=== PATIENT | female | born 1995 | race Caucasian/White ===

== ENCOUNTER 2018-03-17 20:45 | Outpatient (CLI) | payer OTHER ==
[2018-03-17 21:34] LABS: APPEARANCE,URINE CLEAR; BILIRUBIN,URINE NEGATIVE (NEGATIVE); COLOR,URINE YELLOW; GLUCOSE, URINE NEGATIVE (NEGATIVE); KETONES,URINE NEGATIVE (NEGATIVE); LEUKOCYTE ESTERASE,URINE NEGATIVE (NEGATIVE); NITRITE,URINE NEGATIVE (NEGATIVE); PROTEIN,URINE NEGATIVE (NEGATIVE); URINE SPECIFIC GRAVITY 1.019; UROBILINOGEN,URINE NEGATIVE mg/dL (<2.0)
[2018-03-17 21:35] LABS: AMNISURE (ROM) NEGATIVE (NEGATIVE)
[2018-03-17 21:52] LABS: URINE AMPHETAMINES SCREEN NEGATIVE; URINE BARBITURATES SCREEN NEGATIVE; URINE BENZODIAZEPINES SCREEN NEGATIVE; URINE COCAINE SCREEN NEGATIVE; URINE MARIJUANA (THC) SCREEN NEGATIVE; URINE METHADONE SCREEN NEGATIVE; URINE PHENCYCLIDINE SCREEN NEGATIVE
== END 2018-03-17 22:00 | disposition home or self-care (01) ==
LOC: LC 20:45
PROVIDERS: ATTEND Obstetrics & Gynecology
PROC: 4A1HXCZ Monitoring of Products of Conception, Cardiac Rate, External Approach (ICD-10-PCS; principal; 2018-03-17)
DX: O47.1 False labor at or after 37 completed weeks of gestation (principal); Z3A.39 39 weeks gestation of pregnancy
CPT/HCPCS: 59025; 80307; 81005; 84112

== ENCOUNTER 2018-03-21 14:17 | Outpatient (CLI) | payer OTHER ==
--- NOTE | 2018-03-21 14:24 | Non Stress Test Report ---
Non Stress Test Datetime Report Generated by CPN: 03/21/2018 14:24 DEMOGRAPHIC EGA NST: 39.0 INDICATION Indication for Study: Ordered by Provider URINE RESULTS Urine Protein, NST: Negative Urine Ketones - NST: Negative Urine Glucose - NST: Negative Urine Blood - NST: Negative MONITORING Monitor Explained: Monitor Explained; Test Explained; Patient Verbalized Understanding Time on Monitor: 03/17/2018 21:02 Time off Monitor: 03/17/2018 21:51 NST Duration: 49 NST INTERVENTIONS NST Interventions: PO Hydration Physician Notified NST: Dr. Antolin BABY A: [id number] BABY A Movement : Present Contraction Frequency : None FHR Baseline : 145 Accelerations : 15X15 Decelerations : None Variability : Moderate 6-25bpm NST Review: Meets Criteria for Reactive NST NST Review and Verified By : Virgen Tellez RN NST Results: Reactive NST REPORT Report Trigger: Send Report
--- NOTE | 2018-03-21 15:15 | Non Stress Test Report ---
Non Stress Test Datetime Report Generated by CPN: 03/21/2018 15:15 DEMOGRAPHIC EGA NST: 39.4 INDICATION Indication for Study: Ordered by Provider VITAL SIGNS Temperature - NST: 99.0 Pulse - NST: 101 RESP - NST: 18 NBPSYS NST: 121 NBPDIA NST: 72 MONITORING Monitor Explained: Monitor Explained; Test Explained; Patient Verbalized Understanding Time on Monitor: 03/21/2018 14:30 NST INTERVENTIONS NST Interventions: PO Hydration Physician Notified NST: [id number] BABY A Movement : Present Contraction Frequency : x1 FHR Baseline : 140 Accelerations : 15X15 Decelerations : None Variability : Moderate 6-25bpm NST Review: Meets Criteria for Reactive NST NST Review and Verified By : Danyell NST Results: Reactive NST REPORT Report Trigger: Send Report
== END 2018-03-21 15:10 | disposition home or self-care (01) ==
LOC: LC 14:17
PROVIDERS: ATTEND Student in an Organized Health Care Education/Training Program
PROC: 4A1HXCZ Monitoring of Products of Conception, Cardiac Rate, External Approach (ICD-10-PCS; principal; 2018-03-21)
DX: Z34.93 Encounter for supervision of normal pregnancy, unspecified, third trimester (principal)
CPT/HCPCS: 59025

== ENCOUNTER 2018-03-22 11:42 | Inpatient (IN) | payer OTHER ==
[2018-03-22 12:44] LABS: URINE AMPHETAMINES SCREEN NEGATIVE; URINE BARBITURATES SCREEN NEGATIVE; URINE BENZODIAZEPINES SCREEN NEGATIVE; URINE COCAINE SCREEN NEGATIVE; URINE MARIJUANA (THC) SCREEN NEGATIVE; URINE METHADONE SCREEN NEGATIVE; URINE PHENCYCLIDINE SCREEN NEGATIVE
[2018-03-22] MEDS ORDERED: RINGERS SOLUTION,LACTATED 300 ML IV ONE (14:33)
[2018-03-22] MEDS ORDERED: PENICILLIN G-K 5 MILLION UNIT VIAL IV ONE (14:34)
[2018-03-22] MEDS ORDERED: MISOPROSTOL 0.2 MG TABLET ONE (14:34)
[2018-03-22] MEDS ORDERED: OXYTOCIN/NORMAL SALINE 20 UNIT/1,000 ML RTUINJ ONE (14:34)
[2018-03-22] MEDS ORDERED: LIDOCAINE 1% INJ-PF (10 MG/ML) 30 ML SDV ONE (14:34)
[2018-03-22] MEDS ORDERED: PENICILLIN G-K 5 MILLION UNIT VIAL ONE (14:34)
[2018-03-22] MEDS ORDERED: ONDANSETRON 4 MG TAB.RAPDIS ONE (14:45)
[2018-03-22 14:58] LABS: ABSOLUTE BASOPHILS # (AUTO) 0.1 10^3/uL (0.0-0.2); ABSOLUTE LYMPHOCYTES (AUTO) 2.3 10^3/uL (0.5-4.7); ABSOLUTE MONOCYTES (AUTO) 0.9 10^3/uL (0.1-1.4); ABSOLUTE NEUT (AUTO) 13.4 10^3/uL (1.7-8.2); BASOPHILS % (AUTO) 0.7 % (0-2); EOSINOPHILS % (AUTO) 0.1 % (0-6); HEMATOCRIT 36.4 % (36.0-47.0); HEMOGLOBIN 12.4 g/dL (12.0-15.5); LYMPHOCYTES % (AUTO) 13.9 % (13-45); MEAN CORPUSCULAR HEMOGLOBIN 27.3 pg (27.0-33.4); MEAN CORPUSCULAR VOLUME 80 fl (80-97); MONOCYTES % (AUTO) 5.5 % (3-13); PLATELET COUNT 313 10^3/uL (150-450); RED BLOOD COUNT 4.53 10^6/uL (3.72-5.28); RED CELL DISTRIBUTION WIDTH 15.3 % (11.5-14.0); SEGMENTED NEUTROPHILS % (AUTO) 79.8 % (42-78); TOTAL CELLS COUNTED % (AUTO) 100 %; WHITE BLOOD COUNT 16.8 10^3/uL (4.0-10.5)
[2018-03-22] MEDS ORDERED: EPHEDRINE SULFATE INJ 50 MG/1 ML AMPULE ONE (14:58)
[2018-03-22] MEDS ORDERED: BUPIVACAINE HCL 0.25 % INJ/PF (2.5 MG/1 ML) 30 ML VIAL ONE (14:59)
[2018-03-22] MEDS ORDERED: FENTANYL/BUPIVACAINE/NS/PF 300 MCG/150 ML RTUINJ EPI ONE (14:59)
--- NOTE | 2018-03-22 15:33 | Admission Physical ---
Datetime Report Generated by CPN: 03/22/2018 15:33 CURRENT ADMISSION Admit Impression : Term, Intrauterine ALLERGIES Medication Allergies: No Medication Allergies: No Known Allergies (03/21/2018) Latex: No Latex Allergies Food Allergies: N/A Environmental Allergies: N/A OBSTETRICAL HISTORY EDC: 03/24/2018 00:00 : 1 Para: 0 Term: 0 : 0 SAB: 0 IAB: 0 Ectopic: 0 Livin Cesareans: 0 VBACs: 0 Multiple Births: 0 Gestational Diabetes: Yes Rh Sensitization: No Incompetent Cervix: No FRANCHESKA: No Infertility: No ART Treatment: No Uterine Anomaly: No IUGR: No Hx Previous C/S: No Macrosomia: No Hx Loss/Stillborn: No PIH: No Hx : No Placenta Previa/Abruption: No Depression/PP Depression: No PTL/PROM: No Post Hemorrhage: No Current Procedures: Ultrasound; NST Obstetrical History Comments: G1: current GDM diet controlled SEE RECORDS Alcohol: No Marijuana : No Cocaine: No Other Illicit Drugs: No Cigarettes: Never Smoker. [id number] MEDICAL HISTORY Diabetes: Yes Diabetes Type: Gestational Diabetes Blood Transfusion: No Pulmonary Disease (Asthma, TB): No Breast Disease: No Hypertension: No Animal Care Worker Surgery: No Heart Disease: No Hosp/Surgery: Yes Autoimmune Disorder: No Anesthetic Complications: No Kidney Disease: No Abnormal Pap Smear: No Neuro/Epilepsy: No Psychiatric Disorders: No Other Medical Diseases: No Hepatitis/Liver Disease: No Significant Family History: No Varicosities/Phlebitis: No Trauma/Violence : No Thyroid Dysfunction: No Medical History Comments: Lip surgery (2002) INFECTIOUS HISTORY Gonorrhea: No Genital Herpes: No Chlamydia: No Tuberculosis: No Syphilis: No Hepatitis: No HIV/AIDS Exposure: No Rash or Viral Illness: No HPV: No PHYSICAL EXAM General: Normal HEENT: Normal Neurologic: Normal Thyroid: Normal Heart: Normal Lungs: Normal Breast: Deferred Back: Normal Abdomen: Normal Genitourinary Exam: Normal Extremities: Normal DTRs: Normal Pelvic Type: Adequate Vital Signs: Reviewed MEMBRANES Membranes: Intact FETUS A Monitoring: External US FHR- Baseline: 120 Variability: Moderate 6-25bpm Accelerations: 15X15 Decelerations: None FHR Category: Category I Presentation: Vertex Admit Comment: 22 yo EDC 03/24/18 EGA 39.5 obesity term GDM positive GBS sve /1 admit gbs prophylaxis pain management pt considering epidural anticipate PLANS FOR LABOR AND DELIVERY Labor and Delivery: Plan Pain Management: Epidural Feeding Preference: Breast Benefit of Breast Feed Discussed: Yes Circumcision: N/A INFORMED CONSENT Assignment: Aroldo Newell MD Signature: with User ID: [email or web address] : with User ID: [email or web address]
[2018-03-22] MEDS ORDERED: OXYTOCIN/NORMAL SALINE 1,000 ML IV PRN (18:20)
[2018-03-22] MEDS ORDERED: DIPH/PERTUSS(ACELL)/TETANUS VAC/PF 0.5 ML SYR (>=10YO) IM PRN (18:20)
[2018-03-22] MEDS ORDERED: DIBUCAINE 1% OINTMENT 28 GM TP PRN (18:20)
[2018-03-22] MEDS ORDERED: ZOLPIDEM TARTRATE 5 MG TABLET PO PRN (18:20)
[2018-03-22] MEDS ORDERED: BENZOCAINE/MENTHOL AEROSOL SPRAY 56 ML TOP PRN (18:20)
[2018-03-22] MEDS ORDERED: MEASLES,MUMPS&RUBELLA VACC/PF 0.5 ML VIAL SUBCUT PRN (18:20)
[2018-03-22] MEDS: IBUPROFEN 800 MG TABLET PO SCH (22:37)
[2018-03-23] MEDS: IBUPROFEN 800 MG TABLET PO SCH ×3 (05:29→22:17)
[2018-03-23 07:25] LABS: MEAN CORPUSCULAR HEMOGLOBIN 27.3 pg (27.0-33.4); MEAN CORPUSCULAR HGB CONC 33.5 g/dL (32.0-36.0); MEAN CORPUSCULAR VOLUME 81 fl (80-97); PLATELET COUNT 256 10^3/uL (150-450); RED BLOOD COUNT 3.56 10^6/uL (3.72-5.28); RED CELL DISTRIBUTION WIDTH 15.4 % (11.5-14.0)
[2018-03-23 07:29] LABS: HEMOGLOBIN 9.7 g/dL (12.0-15.5)
[2018-03-23] MEDS: SENNOSIDES/DOCUSATE 8.6-50 MG 1 EACH TABLET PO SCH (10:26)
[2018-03-23] MEDS: PRENATAL VITAMIN W DHA CAPSULE PO SCH (10:26)
[2018-03-23] MEDS: DOCUSATE SODIUM 100 MG CAPSULE PO SCH ×2 (10:27→17:38)
[2018-03-23] MEDS: FERROUS SULFATE 325 MG TABLET PO SCH ×2 (10:27→17:37)
--- NOTE | 2018-03-23 10:31 | PDOC PROGRESS REPORT ---
Subjective-OB Progress Note for:: 03/23/18 Physical Exam (OB) Vital Signs: Temp Pulse Resp BP Pulse Ox 97.8 F 88 15 117/72 99 03/23/18 08:00 03/23/18 08:00 03/23/18 08:00 03/23/18 08:00 03/23/18 08:00 Intake & Output 03/22/18 03/23/18 03/24/18 06:59 06:59 06:59 Weight 101.8 kg - PIH/Pre-Eclampsia DTR's: 1 + Clonus: Negative Headache: Absent Epigastric Pain: No Visual Changes: No - Lochia Lochia Amount: Scant < 10 ml Lochia Color: Rubra/Red - Abdomen Description: Soft, Round Hernia Present: No Bowel Sounds: Normoactive Flatus Presence: Present Stool: No Fundal Description: Firm, Midline Fundal Height: u/u - u/2 Objective-Diagnostic Laboratory: 03/23/18 07:06 03/22/18 03/22/18 03/23/18 14:40 14:40 07:06 WBC 16.8 H 19.0 H RBC 4.53 3.56 L Hgb 12.4 9.7 L D Hct 36.4 29.0 L MCV 80 81 MCH 27.3 27.3 MCHC 34.0 33.5 RDW 15.3 H 15.4 H Plt Count 313 256 Seg Neutrophils % 79.8 H Lymphocytes % 13.9 Monocytes % 5.5 Eosinophils % 0.1 Basophils % 0.7 Absolute Neutrophils 13.4 H Absolute Lymphocytes 2.3 Absolute Monocytes 0.9 Absolute Eosinophils 0.0 Absolute Basophils 0.1 Blood Type O POSITIVE Antibody Screen NEGATIVE
[2018-03-23] MEDS ORDERED: IBUPROFEN 800 MG TABLET PO ONE (17:45)
[2018-03-24] MEDS: IBUPROFEN 800 MG TABLET PO SCH ×2 (06:07→14:37)
[2018-03-24 08:12] LABS: HEMATOCRIT 29.4 % (36.0-47.0); HEMOGLOBIN 9.8 g/dL (12.0-15.5); MEAN CORPUSCULAR HEMOGLOBIN 27.2 pg (27.0-33.4); MEAN CORPUSCULAR HGB CONC 33.2 g/dL (32.0-36.0); MEAN CORPUSCULAR VOLUME 82 fl (80-97); PLATELET COUNT 260 10^3/uL (150-450); RED BLOOD COUNT 3.59 10^6/uL (3.72-5.28); RED CELL DISTRIBUTION WIDTH 15.7 % (11.5-14.0); WHITE BLOOD COUNT 12.6 10^3/uL (4.0-10.5)
[2018-03-24 09:52] VITALS: BP 117/68
[2018-03-24] MEDS: FERROUS SULFATE 325 MG TABLET PO SCH (10:35)
[2018-03-24] MEDS: SENNOSIDES/DOCUSATE 8.6-50 MG 1 EACH TABLET PO SCH (10:35)
[2018-03-24] MEDS: PRENATAL VITAMIN W DHA CAPSULE PO SCH (10:35)
[2018-03-24] MEDS: DOCUSATE SODIUM 100 MG CAPSULE PO SCH (10:35)
--- NOTE | 2018-03-24 11:55 | PDOC PROGRESS REPORT ---
Subjective-OB Progress Note for:: 03/24/18 Subjective: Ready to go home-knows baby will be staying. Physical Exam (OB) Vital Signs: Temp Pulse Resp BP Pulse Ox 98.0 F 97 18 117/68 99 03/24/18 08:11 03/24/18 08:11 03/24/18 08:11 03/24/18 07:40 03/24/18 08:11 Intake & Output 03/23/18 03/24/18 03/25/18 06:59 06:59 06:59 Weight 101.8 kg - PIH/Pre-Eclampsia DTR's: 1 + Clonus: Negative Headache: Absent Epigastric Pain: No Visual Changes: No - Lochia Lochia Amount: Small 10-25 ml Lochia Color: Rubra/Red - Abdomen Description: Tender, Soft Hernia Present: No Bowel Sounds: Normoactive Flatus Presence: Present Stool: Yes Fundal Description: Firm, Midline Fundal Height: u/u - u/2 Objective-Diagnostic Laboratory: 03/24/18 07:31 03/24/18 07:31 WBC 12.6 H RBC 3.59 L Hgb 9.8 L Hct 29.4 L MCV 82 MCH 27.2 MCHC 33.2 RDW 15.7 H Plt Count 260
--- NOTE | 2018-03-24 12:02 | PDOC DISCHARGE SUMMARY ---
Final Diagnosis Discharge Date: 03/24/18 - Final Diagnosis (1) Anemia Is this a current diagnosis for this admission?: Yes (2) GDM (gestational diabetes mellitus) Is this a current diagnosis for this admission?: Yes (3) Positive GBS test Is this a current diagnosis for this admission?: Yes (4) Delivery normal Is this a current diagnosis for this admission?: Yes (5) Is this a current diagnosis for this admission?: Yes Discharge Data - Discharge Medication Prescriptions: Ferrous Sulfate [Feosol 325 mg Tablet] 325 mg PO BID #60 tablet Home Medications: Prenat 115/Iron Fum/Folic/Dss [ 19 Tablet] 1 each PO DAILY 03/17/18 Ferrous Sulfate [Feosol 325 mg Tablet] 325 mg PO BID #60 tablet 03/24/18 Gestational Age: 39.5 wks Reason(s) for Admission: Onset of Labor, Gestional Diabetes Procedures: Ultrasound Intrapartum Procedure(s): Spontaneous Vaginal Delivery Complication(s): Laceration-Vaginal, Laceration-Labial Laceration-Degree: 2nd - [place] Data Baby 1 Female at 1 minute: 8 at 5 minutes: 9 Weight: 3.118 kg Home with Mother: No Complications: Yes - Obs for GBS - Diagnosis Test Laboratory: Temp Pulse Resp BP Pulse Ox 98.0 F 97 18 117/68 99 03/24/18 08:11 03/24/18 08:11 03/24/18 08:11 03/24/18 07:40 03/24/18 08:11 03/22/18 03/22/18 03/23/18 11:47 14:40 07:06 RBC 4.53 3.56 L Hgb 12.4 9.7 L D Hct 36.4 29.0 L Urine Opiates Screen NEGATIVE 03/24/18 07:31 RBC 3.59 L Hgb 9.8 L Hct 29.4 L Urine Opiates Screen - Discharge information/Instructions Discharge Activity: Activity As Tolerated, Balance Activity w/Rest, Pelvic Rest , Slowly Increase Activity, No tub bath Discharge Diet: Regular Disposition: HOME, SELF-CARE Follow up with: [facility] in: 4, Weeks
--- NOTE | 2018-03-29 21:55 | Delivery Summary ---
Del Sum A-C Datetime Report Generated by CPN: 03/29/2018 21:55 DELIVERY PERSONNEL DELIVERY PERSONNEL: [id number] Delivery Doctor:: Karen Billingsley CNM Labor and Delivery Nurse:: Karen Lindo RN Nursery Nurse:: Willem Salas RN Additional Personnel: : Faustina Parada, Student CASTING SUPERVISOR [place] MATERNAL INFORMATION Delivery Anesthesia: Epidural Medications After Delivery: Pitocin Drip 20 Units/1000ml NSS Maternal Complications: None Provider Comments: delivery of viable female apgars 8/9 bulb suctioned on abdomen mom pushed well NURIS nuchal x 1 easily reduced to abdomen tactile stimulation elicits spont cry cord clamped cut by FOb cord blood obtained placenta delivered intact 3VC 2nd degree vaginal laceration repaired under epidural with 2.0 chromic gut 1% lidocaine also administered bilateral right and labial lacerations x 2 stitches each ebl 200 cc hemostasis achieved ff@u-2 moderate lochia with small clots LABOR SUMMARY EDC: 03/24/2018 00:00 No. Babies in Womb: 1 Attempted: No Labor Anesthesia: Epidural LABOR INFORMATION Reason for Induction: Not Applicable Onset of Labor: 03/22/2018 12:01 Complete Dilatation: 03/22/2018 16:14 Other Ripening Agents: n/a Oxytocin: N/A Group B Beta Strep: positive Antibiotics # of Doses: 1 Antibiotics Time of Last Dose: 1443 Name of Antibiotic Given: Penicillin Steroids Given: None Reason Steroids Not Administered: Not Applicable Other Reason Not Administered: n/a MEMBRANES Membranes Rupture Method: Artificial Rupture of Membranes: 03/22/2018 16:14 Length of Rupture (hr): 1.47 Amniotic Fluid Color: Clear Amniotic Fluid Amount: Small Amniotic Fluid Odor: Normal STAGES OF LABOR Stage 1 hr: 4 Stage 1 min: 13 Stage 2 hr: 1 Stage 2 min: 28 Stage 3 hr: 0 Stage 3 min: 2 Total Time in Labor hr: 5 Total Time in Labor min: 43 VAGINAL DELIVERY Episiotomy: Median Laceration #1: Vaginal Laceration Extension #1: Second Degree Other Laceration: bilateral labial Laceration Repair: Yes CSECTION DELIVERY Primary Indication: N/A Secondary Indication: N/A CSection Incidence: N/A Labor: N/A Elective: N/A CSection Incision: N/A BABY A INFORMATION Delivery Date/Time: 03/22/2018 17:42 Method of Delivery: Vaginal Born in Route : No : N/A Forceps: N/A Vacuum Extraction: N/A Shoulder Dystocia : No PRESENTATION/POSITION BABY A Presentation: Cephalic Cephalic Presentation: Vertex Vertex Position: Right Occipital Anterior Breech Presentation: N/A PLACENTA INFORMATION BABY A Placenta Delivery Time : 03/22/2018 17:44 Placenta Method of Delivery: Spontaneous Placenta Status: Delivered Placenta Status: Delivered SCORES BABY A Heart Rate 1 min: >100 bpm Resp Effort 1 min: Good Cry Reflex Irritability 1 min: Cough or Sneeze or Pulls Away Muscle Tone 1 min: Active Motion Color 1 min: Blue/Pale Resuscitation Effort 1 min: Tactile Stimulation SCORE 1 MIN: 8 Heart Rate 5 min: >100 bpm Resp Effort 5 min: Good Cry Reflex Irritability 5 min: Cough or Sneeze or Pulls Away Muscle Tone 5 min: Active Motion Color 5 min: Body [place], Extremities Blue Resuscitation Effort 5 min: Tactile Stimulation SCORE 5 MIN: 9 INFORMATION BABY A Gestational Age at Delivery: 39.5 Gestational Status: Full Term- 39- 40.6 Weeks Infant Outcome : Liveborn Infant Condition : Stable Sex: Female IDENTIFICATION BABY A Infant Verification Date/Time: 03/22/2018 17:58 ID Band Number: [id number] Mother's Name Verified: Yes RN Verifying : CMargie Beck, RN/ D. Spouse WEIGHT/LENGTH BABY A Birthweight (gm): 3130 Infant Weight (lb): 6 Weight (oz): 14 Length (in): 20.50 Infant Length (cm): 52.07 CORD INFORMATION BABY A No. Cord Vessels: 3 Nuchal Cord : Around Neck x1, Loose Cord Blood Taken: Yes-For Eval (Mom's Blood Type - or O+) Suction: Mouth; Nose ASSESSMENT BABY A Skin to Skin: Yes Skin to Skin Time (min): 90 BABY B INFORMATION : N/A SIGNATURES Assignment: Aroldo Newlel MD Signature: with User ID: [email or web address] : with User ID: [email or web address]
== END 2018-03-24 15:16 | disposition home or self-care (01) | DRG 775 ==
LOC: LC 11:42 → LR 14:24 → 2S 20:15
PROVIDERS: ADMIT Obstetrics & Gynecology Gynecology; ATTEND Obstetrics & Gynecology Gynecology
PROC: 10E0XZZ Delivery of Products of Conception, External Approach (ICD-10-PCS; principal; 2018-03-22)
PROC: 0KQM0ZZ Repair Perineum Muscle, Open Approach (ICD-10-PCS; 2018-03-22)
DX: O24.420 Gestational diabetes mellitus in childbirth, diet controlled (principal); Z68.41 Body mass index [BMI] 40.0-44.9, adult; O99.824 Streptococcus B carrier state complicating childbirth; O99.214 Obesity complicating childbirth; E66.8 Other obesity; Z3A.39 39 weeks gestation of pregnancy; O69.81X0 Labor and delivery complicated by cord around neck, without compression, not applicable or unspecified; O70.1 Second degree perineal laceration during delivery; Z37.0 Single live birth
CPT/HCPCS: 36415; 80307; 85025; 85027; 86592; 86850; 86900; 86901; 94760; J2540; J2590; J3010; J3490; S0119

== ENCOUNTER 2018-03-25 19:15 | Emergency (ER) | payer OTHER ==
--- NOTE | 2018-03-25 21:47 | ER Document Report ---
ED General - General Chief Complaint: Leg Pain Stated Complaint: LEG PAIN Time Seen by Provider: 03/25/18 21:14 Notes: Patient is a 22-year-old female 3 days who presents with bilateral lower extremity edema. Patient describes it as a mild, throbbing, constant discomfort to the bilateral lower extremities that has been present since she was discharged from the hospital. She notes that it may have worsened somewhat in the past 24 hours which concerned her and prompted her to come to the emergency department. She did receive IV fluids during her recent hospitalization. Nothing improves or worsens her symptoms. She has not contacted her DIGITAL MARKETING EXECUTIVE regarding today's concerns. He denies any history of DVT or pulmonary embolus. She denies any unilateral severity to the swelling or pain. TRAVEL OUTSIDE OF THE [place] IN LAST 30 DAYS: No - Related Data Allergies/Adverse Reactions: No Known Allergies Allergy (Verified 03/21/18 15:08) Past Medical History - General Information source: Patient - Social History Smoking Status: Never Smoker Chew tobacco use (# tins/day): No Frequency of alcohol use: None Drug Abuse: None Lives with: Spouse/Significant other Family History: Reviewed & Not Pertinent Patient has suicidal ideation: No Patient has homicidal ideation: No Renal/ Medical History: Denies: Hx Peritoneal Dialysis Review of Systems - Review of Systems Notes: Constitutional: Negative for fever. HENT: Negative for sore throat. Eyes: Negative for visual changes. Cardiovascular: Negative for chest pain. Respiratory: Negative for shortness of breath. Gastrointestinal: Negative for abdominal pain, vomiting or diarrhea. Genitourinary: Negative for dysuria. Musculoskeletal: Positive for bilateral lower extremity edema and pain. Skin: Negative for rash. Neurological: Negative for headaches, weakness or numbness. 10 point ROS negative except as marked above and in HPI. Physical Exam - Vital signs Vitals: Temp Pulse Resp BP Pulse Ox 98.5 F 90 18 130/78 H 98 03/25/18 19:22 03/25/18 19:22 03/25/18 19:22 03/25/18 19:22 03/25/18 19:22 Interpretation: Normal Notes: PHYSICAL EXAMINATION: GENERAL: Well-appearing, well-nourished and in no acute distress. HEAD: Atraumatic, normocephalic. EYES: Pupils equal round and reactive to light, extraocular movements intact, sclera anicteric, conjunctiva are normal. ENT: nares patent, oropharynx clear without exudates. Moist mucous membranes. NECK: Normal range of motion, supple without lymphadenopathy LUNGS: Breath sounds clear to auscultation bilaterally and equal. No wheezes rales or rhonchi. HEART: Regular rate and rhythm without murmurs ABDOMEN: Soft, nontender, normoactive bowel sounds. No guarding, no rebound. No masses appreciated. EXTREMITIES: Normal range of motion, 1+ pitting edema in the bilateral lower extremities that is equal and symmetric NEUROLOGICAL: No focal neurological deficits. Moves all extremities spontaneously and on command. PSYCH: Normal mood, normal affect. SKIN: Warm, Dry, normal turgor, no rashes or lesions noted. Course - Re-evaluation Re-evalutation: 03/25/18 21:45 Patient presents with bilateral lower extremity edema, 1+ bilaterally equal and symmetric consistent with edema in the setting of having received IV fluids. There is no unilaterality to the edema. I do not currently suspect an acute DVT or any alternative life-threatening pathology. No evidence of cellulitis. At this time will discharge with return precautions and follow-up recommendations. Verbal discharge instructions given a the bedside and opportunity for questions given. Medication warnings reviewed. Patient is in agreement with this plan and has verbalized understanding of return precautions and the need for primary care follow-up in the next 24-72 hours. - Vital Signs Vital signs: Temp Pulse Resp BP Pulse Ox 98.5 F 92 16 123/100 H 99 03/25/18 19:22 03/25/18 21:50 03/25/18 21:50 03/25/18 21:50 03/25/18 21:50 Discharge - Discharge Clinical Impression: Bilateral lower extremity edema Condition: Good Disposition: HOME, SELF-CARE Additional Instructions: Please wear the compression stockings as much as you are able to reduce the swelling which is due to the IV fluids and your recent . Please return if you develop severe pain in your legs, or swelling fails to resolve in the next 1-2 weeks, or he if you have any other symptoms that are worrisome to you. Please follow-up with your DIGITAL MARKETING EXECUTIVE within the next one leg becomes more swollen the other, several days. Referrals: JACQUELYN ALMODOVAR MD [[facility]] - Follow up as needed
[2018-03-25 22:30] VITALS: BP 123/100
== END 2018-03-25 21:55 | disposition home or self-care (01) ==
LOC: ER 19:15
DX: O90.89 Other complications of the puerperium, not elsewhere classified (principal); R60.0 Localized edema; M79.601 Pain in right arm; M79.602 Pain in left arm
CPT/HCPCS: 99284

== ENCOUNTER 2019-09-24 21:10 | Outpatient (CLI) | payer OTHER ==
[2019-09-24 22:08] LABS: APPEARANCE,URINE SLIGHTLY-CLOUDY; BILIRUBIN,URINE NEGATIVE (NEGATIVE); COLOR,URINE YELLOW; GLUCOSE, URINE NEGATIVE (NEGATIVE); KETONES,URINE NEGATIVE (NEGATIVE); LEUKOCYTE ESTERASE,URINE NEGATIVE (NEGATIVE); NITRITE,URINE NEGATIVE (NEGATIVE); PROTEIN,URINE NEGATIVE (NEGATIVE); URINE SPECIFIC GRAVITY 1.012; UROBILINOGEN,URINE NEGATIVE mg/dL (<2.0)
[2019-09-24 22:30] LABS: URINE AMPHETAMINES SCREEN NEGATIVE; URINE BARBITURATES SCREEN NEGATIVE; URINE BENZODIAZEPINES SCREEN NEGATIVE; URINE COCAINE SCREEN NEGATIVE; URINE MARIJUANA (THC) SCREEN NEGATIVE; URINE METHADONE SCREEN NEGATIVE; URINE PHENCYCLIDINE SCREEN NEGATIVE
--- NOTE | 2019-09-25 00:37 | Non Stress Test Report ---
Non Stress Test Datetime Report Generated by CPN: 09/25/2019 00:37 DEMOGRAPHIC EGA NST: 39.2 INDICATION Indication for Study (NST) Other: Contractions MONITORING Monitor Explained: Monitor Explained; Test Explained; Patient Verbalized Understanding Time on Monitor: 09/24/2019 21:22 Time off Monitor: 09/24/2019 23:27 NST Duration: 125 NST INTERVENTIONS NST Interventions: PO Hydration; Reposition Patient Physician Notified NST: Dr. Gama BABY A: [id number] BABY A Movement : Present Contraction Frequency : 2-30 FHR Baseline : 130 Accelerations : 15X15 Decelerations : None Variability : Moderate 6-25bpm NST Review: Meets Criteria for Reactive NST NST Review and Verified By : Jaime Botello RN NST Results: Reactive NST REPORT Report Trigger: Send Report
== END 2019-09-24 23:39 | disposition home or self-care (01) ==
LOC: LC 21:10
PROVIDERS: ATTEND Student in an Organized Health Care Education/Training Program
PROC: 4A1HXCZ Monitoring of Products of Conception, Cardiac Rate, External Approach (ICD-10-PCS; principal; 2019-09-24)
DX: O47.1 False labor at or after 37 completed weeks of gestation (principal); Z3A.39 39 weeks gestation of pregnancy
CPT/HCPCS: 59025; 80307; 81005

== ENCOUNTER 2019-09-25 23:51 | Inpatient (IN) | payer OTHER ==
[2019-09-26 00:27] LABS: APPEARANCE,URINE CLOUDY; BILIRUBIN,URINE NEGATIVE (NEGATIVE); COLOR,URINE AMBER; GLUCOSE, URINE NEGATIVE (NEGATIVE); KETONES,URINE 20 mg/dL (NEGATIVE); LEUKOCYTE ESTERASE,URINE NEGATIVE (NEGATIVE); NITRITE,URINE NEGATIVE (NEGATIVE); PROTEIN,URINE 100 mg/dL (NEGATIVE); URINE SPECIFIC GRAVITY 1.031
[2019-09-26 00:41] LABS: URINE AMPHETAMINES SCREEN NEGATIVE; URINE BARBITURATES SCREEN NEGATIVE; URINE BENZODIAZEPINES SCREEN NEGATIVE; URINE COCAINE SCREEN NEGATIVE; URINE MARIJUANA (THC) SCREEN NEGATIVE; URINE METHADONE SCREEN NEGATIVE; URINE PHENCYCLIDINE SCREEN NEGATIVE
[2019-09-26] MEDS ORDERED: OXYTOCIN 10 UNIT/ML VIAL ONE (01:53)
[2019-09-26] MEDS ORDERED: OXYTOCIN/NORMAL SALINE 20 UNIT/1,000 ML RTUINJ ONE (01:54)
[2019-09-26] MEDS ORDERED: RINGERS SOLUTION,LACTATED 1,000 ML IV ONE (01:54)
[2019-09-26] MEDS ORDERED: RINGERS SOLUTION,LACTATED 1,000 ML IV PRN (01:54)
[2019-09-26] MEDS ORDERED: LIDOCAINE 1% INJ-PF (10 MG/ML) 30 ML SDV ONE (01:54)
[2019-09-26] MEDS ORDERED: MISOPROSTOL 0.2 MG TABLET ONE (01:54)
[2019-09-26 02:22] LABS: ABSOLUTE MONOCYTES (AUTO) 0.8 10^3/uL (0.1-1.4); ABSOLUTE NEUT (AUTO) 7.7 10^3/uL (1.7-8.2); BASOPHILS % (AUTO) 0.2 % (0-2); EOSINOPHILS % (AUTO) 0.1 % (0-6); HEMOGLOBIN 12.4 g/dL (12.0-15.5); MEAN CORPUSCULAR HEMOGLOBIN 27.9 pg (27.0-33.4); MEAN CORPUSCULAR HGB CONC 34.5 g/dL (32.0-36.0); MEAN CORPUSCULAR VOLUME 81 fl (80-97); MONOCYTES % (AUTO) 7.5 % (3-13); PLATELET COUNT 256 10^3/uL (150-450); RED BLOOD COUNT 4.44 10^6/uL (3.72-5.28); RED CELL DISTRIBUTION WIDTH 15.4 % (11.5-14.0); SEGMENTED NEUTROPHILS % (AUTO) 73.2 % (42-78); TOTAL CELLS COUNTED % (AUTO) 100 %; WHITE BLOOD COUNT 10.5 10^3/uL (4.0-10.5)
[2019-09-26] MEDS ORDERED: PROMETHAZINE HCL INJ 25 MG/1 ML VIAL IV ONE (02:39)
[2019-09-26] MEDS ORDERED: PROMETHAZINE HCL INJ 25 MG/1 ML VIAL ONE (02:41)
[2019-09-26] MEDS ORDERED: FENTANYL/BUPIVACAINE/NS/PF 300 MCG/150 ML RTUINJ EPI ONE (02:42)
[2019-09-26] MEDS ORDERED: EPHEDRINE SULFATE INJ 50 MG/1 ML AMPULE ONE (02:42)
[2019-09-26] MEDS ORDERED: BUPIVACAINE HCL 0.25 % INJ/PF (2.5 MG/1 ML) 30 ML VIAL ONE (02:42)
--- NOTE | 2019-09-26 04:19 | Admission Physical ---
Datetime Report Generated by CPN: 09/26/2019 04:18 CURRENT ADMISSION Chief Complaint: Uterine Contractions Admit Impression : Term, Intrauterine ; Active Labor; Intact Membranes Admit Plan: Admit to Unit; Initiate Labor Protocol ALLERGIES Medication Allergies: No Medication Allergies: No Known Allergies (09/25/2019) Latex: No Latex Allergies OBSTETRICAL HISTORY EDC: 09/29/2019 00:00 : 2 Para: 1 Gestational Diabetes: Yes Rh Sensitization: No Incompetent Cervix: No FRANCHESKA: No Infertility: No ART Treatment: No Uterine Anomaly: No IUGR: No Hx Previous C/S: No Macrosomia: No Hx Loss/Stillborn: No PIH: No Hx : No Placenta Previa/Abruption: No Depression/PP Depression: No PTL/PROM: No Post Hemorrhage: No Current Procedures: Ultrasound; NST Obstetrical History Comments: G1 2017, , baby girl at 39.5 weeks G2 - Current - GDM SEE RECORDS Alcohol: No Marijuana : No Cocaine: No Other Illicit Drugs: No Cigarettes: Never Smoker. [id number] MEDICAL HISTORY Diabetes: Yes Diabetes Type: Gestational Diabetes Blood Transfusion: No Pulmonary Disease (Asthma, TB): No Breast Disease: No Hypertension: No Care Analyst Surgery: No Heart Disease: No Hosp/Surgery: No Autoimmune Disorder: No Anesthetic Complications: No Kidney Disease: No Abnormal Pap Smear: No Neuro/Epilepsy: No Psychiatric Disorders: No Other Medical Diseases: No Hepatitis/Liver Disease: No Significant Family History: Yes Varicosities/Phlebitis: No Trauma/Violence : No Thyroid Dysfunction: No Medical History Comments: Obesity. breast cancer - maternal family. heart attacks - paternal family. INFECTIOUS HISTORY Gonorrhea: No Genital Herpes: No Chlamydia: No Tuberculosis: No Syphilis: No Hepatitis: No HIV/AIDS Exposure: No Rash or Viral Illness: No HPV: No PHYSICAL EXAM General: Normal HEENT: Normal Neurologic: Normal Thyroid: Normal Heart: Normal Lungs: Normal Breast: Normal Back: Normal Abdomen: Normal Genitourinary Exam: Normal Extremities: Normal DTRs: Normal Pelvic Type: Adequate Vital Signs: Reviewed VAGINAL EXAM Dilatation: 5 Effacement: 80 Station: -3 Contraction Comments: Regular contractions FETUS A EGA: 39.4 Monitoring: External US FHR- Baseline: 140 Variability: Moderate 6-25bpm Accelerations: 15X15 Decelerations: None FHR Category: Category I Presentation: Vertex Admit Comment: 23 yo at 39.4 wks EGA in active labor -Admit to LDR -NPO and IVFs -GBS negative -O positive/HbsAg negative/RI -desires epidural -Hx one prior , Anticipate PLANS FOR LABOR AND DELIVERY Labor and Delivery: None Pain Management: Epidural Feeding Preference: Breast Circumcision: Yes INFORMED CONSENT Informed Consent Obtained: Vaginal Delivery; Risks, Benefits and Alternatives Discussed Signature: with User ID: [email or web address] : with User ID: [email or web address]
[2019-09-26] MEDS ORDERED: IBUPROFEN 800 MG TABLET ONE (06:19)
[2019-09-26] MEDS ORDERED: OXYTOCIN/NORMAL SALINE 20 UNIT/1,000 ML RTUINJ IV PRN (07:04)
[2019-09-26] MEDS ORDERED: PROMETHAZINE HCL INJ 25 MG/1 ML VIAL IV PRN (07:04)
[2019-09-26] MEDS ORDERED: DIPHENHYDRAMINE HCL 25 MG CAPSULE PO PRN (07:04)
[2019-09-26] MEDS ORDERED: DIPH/PERTUSS(ACELL)/TETANUS VAC/PF 0.5 ML SYR (>=10YO) IM PRN (07:04)
[2019-09-26] MEDS ORDERED: NA PHOS,M-B/NA PHOS,DI-BA (ADULT) 133 ML ENEMA PR PRN (07:04)
[2019-09-26] MEDS ORDERED: PROMETHAZINE HCL 25 MG TABLET PO PRN (07:04)
[2019-09-26] MEDS ORDERED: GLYCERIN/WITCH HAZEL LEAF 1 EACH MED..WIPE TP PRN (07:04)
[2019-09-26] MEDS ORDERED: ZOLPIDEM TARTRATE 5 MG TABLET PO PRN (07:04)
[2019-09-26] MEDS ORDERED: MAGNESIUM HYDROXIDE SUSP 30 ML UDCUP PO PRN (07:04)
[2019-09-26] MEDS ORDERED: MEASLES,MUMPS&RUBELLA VACC/PF 0.5 ML VIAL SUBCUT PRN (07:04)
[2019-09-26] MEDS ORDERED: BENZOCAINE/MENTHOL AEROSOL SPRAY 56 ML TOP PRN (07:04)
[2019-09-26] MEDS ORDERED: DIBUCAINE 1% OINTMENT 28 GM TP PRN (07:04)
[2019-09-26] MEDS ORDERED: PROMETHAZINE HCL 25 MG SUPP.RECT PR PRN (07:04)
[2019-09-26] MEDS ORDERED: ACETAMINOPHEN 650 MG SUPP.RECT PR PRN (07:04)
[2019-09-26] MEDS ORDERED: ACETAMINOPHEN WITH CODEINE #3 TABLET PO PRN ×2 (07:04)
[2019-09-26] MEDS ORDERED: PSEUDOEPHEDRINE HCL 30 MG TABLET PO PRN (07:04)
--- NOTE | 2019-09-26 08:30 | Delivery Summary ---
Del Sum A-C Datetime Report Generated by CPN: 09/26/2019 08:29 DELIVERY PERSONNEL DELIVERY PERSONNEL: [id number] Delivery Doctor:: Madison Cespedes MD Labor and Delivery Nurse:: Luana Renteria RNmanagement specialist Nurse:: Shanita Castillo RN Panel Beater:: Yue Roberts RN Shop Fitter/[employer]ELTING SUPERVISOR: Jessica Mcneill, ST MATERNAL INFORMATION Delivery Anesthesia: Epidural Medications After Delivery: Pitocin Bolus-Please Comment Meds After Delivery Comment: Pitocin 20 units/1000 ml NSS Estimated Blood Loss (ml): 50 Delivery QBL: 50 Maternal Complications: None Provider Comments: Called to patients room, completely dilated with urge to push. Found to be +2 station. Jimenez removed and after pushing with 2-3 contractions a viable male infant was delivered in NURIS with nuchal x1, too snug to reduce. Right hand /arm delivered posteriorly then the shoulders and rest of body followed easily. COrd clamping delayed 30 seconds as infant was vigorous. Baby skin to skin with Mother. Both stable. LABOR SUMMARY EDC: 09/29/2019 00:00 No. Babies in Womb: 1 Attempted: No Labor Anesthesia: Epidural LABOR INFORMATION Reason for Induction: Not Applicable Onset of Labor: 09/26/2019 01:51 Complete Dilatation: 09/26/2019 03:52 Oxytocin: N/A Group B Beta Strep: Negative Antibiotics # of Doses: 0 Steroids Given: None Reason Steroids Not Administered: Not Applicable MEMBRANES Membranes Rupture Method: Artificial Rupture of Membranes: 09/26/2019 04:01 Length of Rupture (hr): 1.05 Amniotic Fluid Color: Clear Amniotic Fluid Amount: Small STAGES OF LABOR Stage 1 hr: 2 Stage 1 min: 1 Stage 2 hr: 1 Stage 2 min: 12 Stage 3 hr: 0 Stage 3 min: 5 Total Time in Labor hr: 3 Total Time in Labor min: 18 VAGINAL DELIVERY Episiotomy: None Laceration #1: Perineal Laceration Extension #1: First Degree Laceration Repair: Yes Laceration Repair Note: 3-0 chromic in a figure of eight Sponge Count Correct: N/A CSECTION DELIVERY Primary Indication: N/A Secondary Indication: N/A CSection Incidence: N/A Labor: N/A Elective: N/A CSection Incision: N/A Uterine Closure: Double-layer closure BABY A INFORMATION Delivery Date/Time: 09/26/2019 05:04 Method of Delivery: Vaginal Born in Route : No : N/A Forceps: N/A Vacuum Extraction: N/A Shoulder Dystocia : No PRESENTATION/POSITION BABY A Presentation: Cephalic Cephalic Presentation: Vertex Vertex Position: Right Occipital Anterior Breech Presentation: N/A PLACENTA INFORMATION BABY A Placenta Delivery Time : 09/26/2019 05:09 Placenta Method of Delivery: Spontaneous Placenta Status: Delivered SCORES BABY A Heart Rate 1 min: >100 bpm Resp Effort 1 min: Good Cry Reflex Irritability 1 min: Cough or Sneeze or Pulls Away Muscle Tone 1 min: Active Motion Color 1 min: Body [place], Extremities Blue Resuscitation Effort 1 min: Tactile Stimulation SCORE 1 MIN: 9 Heart Rate 5 min: >100 bpm Resp Effort 5 min: Good Cry Reflex Irritability 5 min: Cough or Sneeze or Pulls Away Muscle Tone 5 min: Active Motion Color 5 min: Body [place], Extremities Blue Resuscitation Effort 5 min: Tactile Stimulation SCORE 5 MIN: 9 INFANT INFORMATION BABY A Gestational Age at Delivery: 39.4 Gestational Status: Full Term- 39- 40.6 Weeks Infant Outcome : Liveborn Condition : Stable Sex: Male IDENTIFICATION BABY A Infant Verification Date/Time: 09/26/2019 05:18 ID Band Number: [id number] Mother's Name Verified: Yes Infant RN Verifying : J, RN and C.Castillo, RN WEIGHT/LENGTH BABY A Infant Birthweight (gm): 3651 Infant Weight (lb): 8 Infant Weight (oz): 1 Infant Length (in): 21.00 Length (cm): 53.34 CORD INFORMATION BABY A No. Cord Vessels: 3 Nuchal Cord : Around Neck x1, Tight Nuchal Cord- Other: Compound Right Hand Cord Blood Taken: Yes-For Eval (Mom's Blood Type - or O+) Suction: Mouth ASSESSMENT BABY A Respirations: Appears Normal Skin to Skin: Yes Transferred To: [facility] SIGNATURES Signature: with User ID: [email or web address] : with User ID: [email or web address]
[2019-09-26] MEDS ORDERED: FERROUS SULFATE 325 MG TABLET PO ONE (10:08)
[2019-09-26] MEDS ORDERED: SENNOSIDES/DOCUSATE 8.6-50 MG 1 EACH TABLET ONE (10:08)
[2019-09-26] MEDS ORDERED: DOCUSATE SODIUM 100 MG CAPSULE ONE (10:08)
[2019-09-26] MEDS ORDERED: PRENATAL VITAMIN W DHA CAPSULE PO ONE (10:08)
[2019-09-26] MEDS: DOCUSATE SODIUM 100 MG CAPSULE PO SCH ×2 (10:11→18:26)
[2019-09-26] MEDS: FERROUS SULFATE 325 MG TABLET PO SCH ×2 (10:11→18:26)
[2019-09-26] MEDS: SENNOSIDES/DOCUSATE 8.6-50 MG 1 EACH TABLET PO SCH (10:11)
[2019-09-26] MEDS: PRENATAL VITAMIN W DHA CAPSULE PO SCH (10:11)
[2019-09-26] MEDS: FAMOTIDINE 20 MG TABLET PO SCH ×2 (10:50→22:13)
[2019-09-26] MEDS: IBUPROFEN 800 MG TABLET PO SCH ×2 (13:39→22:13)
[2019-09-27] MEDS: IBUPROFEN 800 MG TABLET PO SCH ×3 (05:22→21:22)
[2019-09-27 07:41] LABS: HEMATOCRIT 32.6 % (36.0-47.0); HEMOGLOBIN 10.9 g/dL (12.0-15.5); MEAN CORPUSCULAR HEMOGLOBIN 27.4 pg (27.0-33.4); MEAN CORPUSCULAR HGB CONC 33.4 g/dL (32.0-36.0); MEAN CORPUSCULAR VOLUME 82 fl (80-97); PLATELET COUNT 199 10^3/uL (150-450); RED BLOOD COUNT 3.97 10^6/uL (3.72-5.28); WHITE BLOOD COUNT 8.7 10^3/uL (4.0-10.5)
--- NOTE | 2019-09-27 10:30 | PDOC PROGRESS REPORT ---
Subjective-OB Progress Note for:: 09/27/19 Subjective: Pt doing well, no concerns. She reports reg diet, voiding without difficulty and light bleeding. Physical Exam (OB) Vital Signs: Temp Pulse Resp BP Pulse Ox 97.4 F 64 16 110/67 100 09/27/19 07:52 09/27/19 07:52 09/27/19 07:52 09/27/19 07:52 09/27/19 07:52 Intake & Output 09/26/19 09/27/19 09/28/19 06:59 06:59 06:59 Weight 99.8 kg - Lochia Lochia Amount: Scant < 10 ml Lochia Color: Rubra/Red - Abdomen Description: Soft Hernia Present: No Fundal Description: Firm, Midline Fundal Height: u/u - u/2 Objective-Diagnostic Laboratory: 09/27/19 07:05 09/27/19 07:05 WBC 8.7 RBC 3.97 Hgb 10.9 L Hct 32.6 L MCV 82 MCH 27.4 MCHC 33.4 RDW 16.0 H Plt Count 199 Assessment and Plan(PN) - Assessment and Plan (1) Anemia Qualifiers: Anemia type: iron deficiency Iron deficiency anemia type: unspecified iron deficiency Qualified Code(s): D50.9 - Iron deficiency anemia, unspecified Is this a current diagnosis for this admission?: Yes (2) Delivery normal Is this a current diagnosis for this admission?: Yes (3) GDM (gestational diabetes mellitus) Qualifiers: Gestational diabetes mellitus control: diet-controlled Trimester: third trimester Qualified Code(s): O24.410 - Gestational diabetes mellitus in , diet controlled Is this a current diagnosis for this admission?: Yes (4) Positive GBS test Is this a current diagnosis for this admission?: Yes - Time Spent with Patient Time with patient: Less than 15 minutes Medications reviewed and adjusted accordingly: Yes - Disposition Anticipated Discharge: Home Within: within 24 hours
[2019-09-27] MEDS: FAMOTIDINE 20 MG TABLET PO SCH ×2 (11:16→21:23)
[2019-09-27] MEDS: DOCUSATE SODIUM 100 MG CAPSULE PO SCH ×2 (11:16→17:48)
[2019-09-27] MEDS: PRENATAL VITAMIN W DHA CAPSULE PO SCH (11:16)
[2019-09-27] MEDS: SENNOSIDES/DOCUSATE 8.6-50 MG 1 EACH TABLET PO SCH (11:16)
[2019-09-27] MEDS: FERROUS SULFATE 325 MG TABLET PO SCH ×2 (11:17→17:48)
[2019-09-28] MEDS: IBUPROFEN 800 MG TABLET PO SCH (05:07)
--- NOTE | 2019-09-28 10:14 | PDOC DISCHARGE SUMMARY ---
Impression - Admit/DC Date/PCP Admission Date/Primary Care Provider: 09/26/19 02:00 THAI GRAY, Discharge Date: 09/28/19 - Discharge Diagnosis (1) Anemia Is this a current diagnosis for this admission?: Yes (2) Delivery normal Is this a current diagnosis for this admission?: Yes (3) GDM (gestational diabetes mellitus) Is this a current diagnosis for this admission?: Yes (4) Positive GBS test Is this a current diagnosis for this admission?: Yes - Additional Information Resuscitation Status: Full Code Discharge Diet: Regular Discharge Activity: Balance Activity w/Rest, Pelvic Rest Referrals: [facility] [Provider Group] Home Medications: Prenat 115/Iron Fum/Folic/Dss [ 19 Tablet] 1 each PO DAILY 03/17/18 Results Laboratory Results: WBC 8.7 10^3/uL (4.0-10.5) 09/27/19 07:05 RBC 3.97 10^6/uL (3.72-5.28) 09/27/19 07:05 Hgb 10.9 g/dL (12.0-15.5) L 09/27/19 07:05 Hct 32.6 % (36.0-47.0) L 09/27/19 07:05 MCV 82 fl (80-97) 09/27/19 07:05 MCH 27.4 pg (27.0-33.4) 09/27/19 07:05 MCHC 33.4 g/dL (32.0-36.0) 09/27/19 07:05 RDW 16.0 % (11.5-14.0) H 09/27/19 07:05 Plt Count 199 10^3/uL (150-450) 09/27/19 07:05 Lymph % (Auto) 19.0 % (13-45) 09/26/19 02:11 [place] % (Auto) 7.5 % (3-13) 09/26/19 02:11 Eos % (Auto) 0.1 % (0-6) 09/26/19 02:11 Baso % (Auto) 0.2 % (0-2) 09/26/19 02:11 Absolute Neuts (auto) 7.7 10^3/uL (1.7-8.2) 09/26/19 02:11 Absolute Lymphs (auto) 2.0 10^3/uL (0.5-4.7) 09/26/19 02:11 Absolute Monos (auto) 0.8 10^3/uL (0.1-1.4) 09/26/19 02:11 Absolute Eos (auto) 0.0 10^3/uL (0.0-0.6) 09/26/19 02:11 Absolute Basos (auto) 0.0 10^3/uL (0.0-0.2) 09/26/19 02:11 Seg Neutrophils % 73.2 % (42-78) 09/26/19 02:11 Urine Color [place] 09/25/19 23:55 Urine Appearance CLOUDY 09/25/19 23:55 Urine pH 6.0 (5.0-9.0) 09/25/19 23:55 Ur Specific [place] 1.031 09/25/19 23:55 Urine Protein 100 mg/dL (NEGATIVE) H 09/25/19 23:55 Urine Glucose (UA) NEGATIVE mg/dL (NEGATIVE) 09/25/19 23:55 Urine Ketones 20 mg/dL (NEGATIVE) H 09/25/19 23:55 Urine Blood NEGATIVE (NEGATIVE) 09/25/19 23:55 Urine Nitrite NEGATIVE (NEGATIVE) 09/25/19 23:55 Urine Bilirubin NEGATIVE (NEGATIVE) 09/25/19 23:55 Urine Urobilinogen 2.0 mg/dL (<2.0) H 09/25/19 23:55 Ur Leukocyte Esterase NEGATIVE (NEGATIVE) 09/25/19 23:55 Urine Ascorbic Acid 40 (NEGATIVE) H 09/25/19 23:55 Urine Opiates Screen NEGATIVE 09/25/19 23:55 Urine Methadone Screen NEGATIVE 09/25/19 23:55 Ur Barbiturates Screen NEGATIVE 09/25/19 23:55 Ur Phencyclidine Scrn NEGATIVE 09/25/19 23:55 Ur Amphetamines Screen NEGATIVE 09/25/19 23:55 U Benzodiazepines Scrn NEGATIVE 09/25/19 23:55 Urine Cocaine Screen NEGATIVE 09/25/19 23:55 U Marijuana (THC) Screen NEGATIVE 09/25/19 23:55 RPR NONREACTIVE (NONREACTIVE) 09/26/19 02:11 Blood Type O POSITIVE 09/26/19 02:11 Antibody Screen NEGATIVE 09/26/19 02:11
[2019-09-28] MEDS: SENNOSIDES/DOCUSATE 8.6-50 MG 1 EACH TABLET PO SCH (10:36)
[2019-09-28] MEDS: PRENATAL VITAMIN W DHA CAPSULE PO SCH (10:36)
[2019-09-28] MEDS: FERROUS SULFATE 325 MG TABLET PO SCH (10:36)
[2019-09-28] MEDS: DOCUSATE SODIUM 100 MG CAPSULE PO SCH (10:36)
[2019-09-28] MEDS: FAMOTIDINE 20 MG TABLET PO SCH (10:36)
[2019-09-28 12:30] VITALS: BP 116/60
== END 2019-09-28 13:05 | disposition home or self-care (01) | DRG 807 ==
LOC: LC 23:51 → LR 09-26 02:00 → 2S 09-26 10:37
PROVIDERS: ADMIT Obstetrics & Gynecology; ATTEND Obstetrics & Gynecology
PROC: 10E0XZZ Delivery of Products of Conception, External Approach (ICD-10-PCS; principal; 2019-09-26)
PROC: 0HQ9XZZ Repair Perineum Skin, External Approach (ICD-10-PCS; 2019-09-26)
DX: O24.420 Gestational diabetes mellitus in childbirth, diet controlled (principal); Z37.0 Single live birth; O69.1XX0 Labor and delivery complicated by cord around neck, with compression, not applicable or unspecified; Z3A.39 39 weeks gestation of pregnancy; O70.0 First degree perineal laceration during delivery; O99.02 Anemia complicating childbirth; D50.9 Iron deficiency anemia, unspecified; O99.824 Streptococcus B carrier state complicating childbirth
CPT/HCPCS: 36415; 80307; 81005; 85025; 85027; 86592; 86850; 86900; 86901; J2550; J2590; J3010; J3490